=== PATIENT | male | born 1950 | race Caucasian/White ===

== ENCOUNTER 2021-03-16 18:40 | Emergency (ER) | payer MEDICARE, BC ==
[~2021-03-16 18:40] MED LIST: AMBIEN10 MG PO; ASPIR-LOW81 MG PO; CLARITIN 10MG T10 MG PO; CRESTOR40 MG PO; FISH OIL 1,0001 EAC3 PO; GLUCOPHAGE 500500 MG PO; HUMALOG 10100 UNITS/ SC; LANTUS INS100 UTS/M1 SC; MELOXICAM7.5 MG PO; MOEXIPRIL HCL15 MG PO; NITROSTAT 0.40.4 MG SL; PLAVIX75 MG PO; PROTONIX40 MG PO; ZETIA 10 MG TAB10 MG PO
[2021-03-16 19:16] LABS: HEMOGLOBIN 15.3 gm/dl (14.0-17.5); RED BLOOD COUNT 4.73 M/UL (4.20-5.50); WHITE BLOOD COUNT 10.5 K/UL (4.5-11.0)
[2021-03-16 19:43] LABS: BUN/CREATININE RATIO 21 (0-10)
== END 2021-03-16 22:45 | disposition home or self-care (01) ==
LOC: ER1 18:40
PROVIDERS: Family Medicine
DX: R07.89 Other chest pain (principal); I25.10 Atherosclerotic heart disease of native coronary artery without angina pectoris; N28.9 Disorder of kidney and ureter, unspecified; Z87.891 Personal history of nicotine dependence; Z79.82 Long term (current) use of aspirin; Z79.01 Long term (current) use of anticoagulants
CPT/HCPCS: 71045; 80053; 82550; 82553; 83874; 84484; 85025; 93005; 99285